=== PATIENT | male | born 1950 | race Caucasian/White ===

== ENCOUNTER 2025-02-10 14:04 | Outpatient (CLI) | payer MEDICARE, OTHER, SELFPAY ==
--- NOTE | 2025-02-10 13:25 | DI.RAD_ITS ---
Exam(s) XR SHOULDER LT COMPLETE 2+V EXAM: XR SHOULDER LT COMPLETE 2+V CLINICAL HISTORY: eval pathology, L SHOULDER PAIN [id number]. TECHNIQUE: 2D digital imaging was performed. COMPARISON: No exams were available for comparison FINDINGS: Five views No evidence fracture or dislocation. There are mild degenerative changes in the glenohumeral and AC joints. There is a small calcific density immediately adjacent to the greater tuberosity. There is a prominent os ossific ridge on the undersurface of the acromion. This is most probably causing impingement upon the rotator cuff mechanism.. IMPRESSION: Calcific rotator cuff tendinitis. Prominent osteophytic ridge on the undersurface of the acromion which is probably causing impingement upon the supraspinatus rotator cuff tendon. DATA REPOSITORY: RADIATION DOSE DELIVERED:
== END 2025-02-10 14:24 ==
LOC: DI 03-14 14:04
PROVIDERS: Visit Provider Nurse Practitioner Family
DX: M75.32 Calcific tendinitis of left shoulder (principal)
CPT/HCPCS: 73030

== ENCOUNTER 2025-03-05 14:08 | Outpatient (CLI) | payer MEDICARE, OTHER, SELFPAY ==
--- NOTE | 2025-03-05 09:45 | DI.RAD_ITS ---
Exam(s) XR SHOULDER LT COMPLETE 2+V EXAM: XR SHOULDER LT COMPLETE 2+V CLINICAL HISTORY: SHOULDER PAIN S/P FALL. TECHNIQUE: 2D digital imaging was performed of the left shoulder. Images were obtained. AP, [place], Y-view and axillary views were obtained. COMPARISON: CR XR SHOULDER LT COMPLETE 2+V from 02/10/2025 FINDINGS: BONES: No acute fracture is present. No bony destructive lesion is seen. JOINTS: No dislocation present. There are mild degenerative changes seen at both the acromioclavicular and glenohumeral joint. SOFT TISSUE: Normal. IMPRESSION: There is no evidence of an acute or healing fracture or dislocation. DATA REPOSITORY: RADIATION DOSE DELIVERED:
== END 2025-03-05 14:09 | disposition home or self-care (01) ==
LOC: DIORS 14:09
PROVIDERS: Visit Provider Student in an Organized Health Care Education/Training Program
DX: M75.102 Unspecified rotator cuff tear or rupture of left shoulder, not specified as traumatic (principal); M19.012 Primary osteoarthritis, left shoulder; M75.02 Adhesive capsulitis of left shoulder; I10 Essential (primary) hypertension; Z79.01 Long term (current) use of anticoagulants
CPT/HCPCS: 99204; 73030

== ENCOUNTER 2025-03-12 01:25 | Outpatient (CLI) | payer MEDICARE, OTHER, SELFPAY ==
--- NOTE | 2025-03-12 11:25 | DI.MRI_ITS ---
Exam(s) MR UPPER JOINT LT WO EXAM: MR UPPER JOINT LT WO CLINICAL HISTORY: L SHOULDER PAIN,LT ROTATOR CUFF TEAR,ARTHRITIS LT GLENOHUMERAL JOINT. TECHNIQUE: Multiplanar multisequence MRI was performed. COMPARISON: CR XR SHOULDER LT COMPLETE 2+V from 02/10/2025 CR XR SHOULDER LT COMPLETE 2+V from 03/05/2025 FINDINGS: This is an incomplete examination. The patient was unable to complete the exam. The primary care physician was contacted. The examination is limited due to patient motion artifact. BONES: There is a nondisplaced oblique fracture through the base of the coracoid process. There is marrow edema seen in the distal clavicle. There is fluid seen within the acromioclavicular joint. JOINTS: There are degenerative changes seen at the acromioclavicular joint. The glenohumeral joint is normal. There is a joint effusion. TENDONS: Supraspinatus: There is tendinosis seen in the supraspinatus tendon. Infraspinatus: Unremarkable. Subscapularis: Unremarkable. Teres Minor: Unremarkable. Biceps and [place]: Biceps evaluation is suboptimal due to patient motion artifact. MUSCLES: Unremarkable. GLENOID LABRUM: The glenoid labrum cannot be adequately evaluated on this examination due to significant patient motion artifact. SOFT TISSUES: There is fluid seen in the soft tissues anteriorly and around the biceps tendon. LIGAMENTS: Unremarkable. OTHER: Subacromial and subdeltoid bursae are unremarkable. IMPRESSION: 1. The examination is incomplete. The patient was unable to finish the examination. 2. The examination is compromised due to patient motion artifact. 3. Nondisplaced oblique fracture through the base of the coracoid process. 4. Mild edema seen in the distal clavicle. Evaluation or fracture is compromised due to patient motion. 5. Fluid seen in the soft tissues around the shoulder particularly anteriorly and a joint effusion. 6. The rotator cuff tendons and the biceps tendon cannot be completely evaluated on this examination. DATA REPOSITORY:
== END 2025-03-12 01:45 ==
LOC: DI 01:25
PROVIDERS: Visit Provider Student in an Organized Health Care Education/Training Program
DX: S42.132A Displaced fracture of coracoid process, left shoulder, initial encounter for closed fracture (principal); X58.XXXA Exposure to other specified factors, initial encounter
CPT/HCPCS: 73221

== ENCOUNTER 2025-04-16 15:00 | Outpatient (CLI) | payer MEDICARE, OTHER, SELFPAY ==
--- NOTE | 2025-04-16 13:45 | DI.RAD_ITS ---
Exam(s) XR SHOULDER LT COMPLETE 2+V EXAM: XR SHOULDER LT COMPLETE 2+V CLINICAL HISTORY: F/U CORACOID FX. TECHNIQUE: 2D digital imaging was performed. COMPARISON: CR XR SHOULDER LT COMPLETE 2+V from 03/05/2025 FINDINGS: Two views No evidence of fracture or dislocation no abnormal soft tissue calcifications. Subacromial space is not diminished. There is a benign-appearing bone cyst in the lateral half of the humeral head measuring 6 x 7 mm, unchanged. There are mild-moderate degenerative changes in the glenohumeral joint. Moderate degenerative changes in the AC joint. No evidence of clavicle fracture. No significant osseous lesions. IMPRESSION: Mild-moderate degenerative changes are noted in the glenohumeral joint. Also some degenerative change in the ipsilateral AC joint. DATA REPOSITORY: RADIATION DOSE DELIVERED:
== END 2025-04-16 15:01 | disposition home or self-care (01) ==
LOC: DIORS 04-17 11:40
PROVIDERS: Visit Provider Student in an Organized Health Care Education/Training Program
DX: M75.102 Unspecified rotator cuff tear or rupture of left shoulder, not specified as traumatic (principal); S42.132D Displaced fracture of coracoid process, left shoulder, subsequent encounter for fracture with routine healing; X58.XXXD Exposure to other specified factors, subsequent encounter
CPT/HCPCS: 99213; 73030